=== PATIENT | female | born 1990 | race Caucasian/White ===

== ENCOUNTER 2023-02-08 17:47 | Inpatient (IN) ==
[2023-02-08] MEDS ORDERED: Lidocaine 1% VIAL 10 MG/ML 30 ML VIAL INJ PRN (18:24)
[2023-02-08] MEDS ORDERED: Dinoprostone 10 MG VAG.SUPP VAGINAL ONE (18:24)
[2023-02-08] MEDS ORDERED: Lactated Ringers 1000 ml BAG 1,000 ML IV ONE (18:24)
[2023-02-08] MEDS ORDERED: Penicillin G Potassium IV 5,000,000 UNITS in NS 0.9% 100 ml BAG 100 ML IVPB ONE (18:24)
[2023-02-08] MEDS ORDERED: Buffered Lidocaine 1% SYRIN 1 ml INTRADERM ONE (18:24)
[2023-02-08] MEDS ORDERED: Promethazine INJ(RESTRICTED) 25 MG/ML 1 ml VIAL IV PRN (18:24)
[2023-02-08] MEDS ORDERED: Morphine 10 MG/ML VIAL (1 ml) IM PRN (20:00)
[2023-02-08] MEDS ORDERED: Ondansetron ODT 4 mg TAB 4 MG TAB SL PRN (20:03)
[2023-02-08 20:53] LABS: Urine Benzodiazepine Screen None Detected (None Detect); Urine Opiates Screen None Detected (None Detect)
[2023-02-08] MEDS: Penicillin G Potassium IV 3,000,000 UNITS in NS 0.9% 100 ml BAG 100 ML IVPB SCH ×2 (22:10→23:04)
[2023-02-08 22:39] LABS: ABS Eosinophils 0.2 10^3/uL (0.0-0.5); ABS Lymphocytes 1.8 10^3/uL (1.0-4.8); ABS Monocytes 0.6 10^3/uL (0.0-0.9); ABS Neutrophils 7.9 10^3/uL (1.5-7.6); ABS Nucleated RBC 0.01 10^3/ul; Eosinophil % 1.7 %; Hematocrit 31.5 % (35-45); Hemoglobin 10.7 g/dL (11.5-14.3); Lymphocyte % 17.1 %; Mean Corpuscular Hemoglobin 28.2 pg (27-33); Mean Corpuscular Hgb Conc 33.9 g/dL (31-36); Mean Corpuscular Volume 83.1 fL (80-97); Mean Platelet Volume 7.4 fL (7.5-11.2); Nucleated Red Blood Cells % 0.1 %/100WBC (0.0-0.8); Platelet Count 369 10^3/uL (150-450); Red Blood Count 3.79 10^6/uL (3.63-4.92); White Blood Count 10.5 10^3/uL (3.8-11.8)
[2023-02-09] MEDS: Penicillin G Potassium IV 3,000,000 UNITS in NS 0.9% 100 ml BAG 100 ML IVPB SCH ×2 (03:22→22:30)
[2023-02-09] MEDS: Ondansetron 4 mg VIAL 2 MG/ML 2 ml VIAL IV PRN ×2 (11:02→19:23)
[2023-02-09] MEDS ORDERED: Morphine 4 MG/ML VIAL (1 ml) IV ONE (11:03)
[2023-02-09] MEDS ORDERED: Buffered Lidocaine 1% SYRIN 1 ml ONE (12:27)
[2023-02-09] MEDS: Oxytocin in LR 20,000 MILLI.UNIT/1,000 ML BAG IV SCH (12:42)
[2023-02-09] MEDS: Lactated Ringers 1000 ml BAG 1,000 ML IV SCH ×3 (12:42→22:00)
[2023-02-09] MEDS ORDERED: Buffered Lidocaine 1% SYRIN 1 ml INTRADERM ONE (13:10)
[2023-02-09] MEDS ORDERED: OBEPIDURAL (200 ML) 200 ML EPIDURAL ONE (19:44)
[2023-02-09] MEDS ORDERED: Lidocaine 1.5% EPI 1:200,000 30 ML SDV ONE (19:44)
[2023-02-09] MEDS ORDERED: fentaNYL 100 mcg/2 ml 50 MCG/ML VIAL ONE (20:08)
[2023-02-09] MEDS ORDERED: Lactated Ringers 1000 ml BAG 1,000 ML IV ONE (20:22)
[2023-02-09] MEDS ORDERED: Sodium Citrate/Citric Acid LIQ 15 ML UDC PO PRN (20:22)
[2023-02-09] MEDS ORDERED: Phenylephrine 40 mcg/mL 10mL (400mcg) SYRINGE IV PUSH PRN ×2 (20:22)
[2023-02-09] MEDS ORDERED: OBEPIDURAL (200 ML) 200 ML EPIDURAL SCH (21:00)
[2023-02-09] MEDS ORDERED: Lactated Ringers 1000 ml BAG 1,000 ML IV SCH (21:00)
[2023-02-09] MEDS ORDERED: Bupivacaine 0.5% SDV PF 30ML VIAL ONE (21:57)
[2023-02-09] MEDS ORDERED: Lidocaine 2% PF 5 ML VIAL ONE (21:57)
[2023-02-09 22:22] LABS: Urine Appearance Clear; Urine Bilirubin Negative (Negative); Urine Blood Negative (Negative); Urine Color Yellow; Urine Glucose Negative (Negative); Urine Ketones Trace (Negative); Urine Nitrite Negative (Negative); Urine Protein Negative (Negative); Urine Specific Gravity 1.019 (1.002-1.030); Urine Urobilinogen Negative (Negative)
[2023-02-10] MEDS ORDERED: Lidocaine 1.5% EPI 1:200,000 30 ML SDV ONE (02:12)
[2023-02-10] MEDS: Penicillin G Potassium IV 3,000,000 UNITS in NS 0.9% 100 ml BAG 100 ML IVPB SCH ×5 (03:06→19:54)
[2023-02-10] MEDS: Oxytocin in LR 20,000 MILLI.UNIT/1,000 ML BAG IV SCH (06:06)
[2023-02-10] MEDS ORDERED: Glycerin ADULT 2.4 gm SUPP PR PRN (06:32)
[2023-02-10] MEDS ORDERED: Witch Hazel PAD JAR TOPICAL PRN (06:32)
[2023-02-10] MEDS: Dibucaine 1% OINT 28.35 GM TUBE PR PRN (09:57)
[2023-02-10 17:21] LABS: Hematocrit 28.3 % (35-45); Hemoglobin 9.5 g/dL (11.5-14.3)
[2023-02-11 07:38] LABS: ABS Eosinophils 0.1 10^3/uL (0.0-0.5); ABS Lymphocytes 2.5 10^3/uL (1.0-4.8); ABS Monocytes 0.6 10^3/uL (0.0-0.9); ABS Neutrophils 5.2 10^3/uL (1.5-7.6); Eosinophil % 1.7 %; Hematocrit 24.2 % (35-45); Hemoglobin 8.2 g/dL (11.5-14.3); Mean Corpuscular Hemoglobin 27.7 pg (27-33); Mean Corpuscular Hgb Conc 33.8 g/dL (31-36); Mean Corpuscular Volume 82.1 fL (80-97); Mean Platelet Volume 7.1 fL (7.5-11.2); Platelet Count 299 10^3/uL (150-450); Red Blood Count 2.95 10^6/uL (3.63-4.92); Red Cell Distribution Width 14.1 % (12-17); White Blood Count 8.5 10^3/uL (3.8-11.8)
[2023-02-12] MEDS: Dibucaine 1% OINT 28.35 GM TUBE PR PRN (08:47)
[2023-02-12 09:33] VITALS: BP 128/71
== END 2023-02-12 14:20 | disposition home or self-care (01) | DRG 560 ==
LOC: MCHOBOUT 17:47 → MCHOB 18:02
PROVIDERS: ADMIT Registered Nurse; ATTEND Midwife